=== PATIENT | female | born 1980 | race Caucasian/White ===

== ENCOUNTER 2016-11-13 19:31 | Emergency (ER) | payer OTHER ==
--- NOTE | 2016-11-13 20:04 | ERNOTE ---
Chest Pain/Cardiac HPI Chief Complaint: Chest Pain Time Seen by Provider: 11/13/16 19:57 Source: patient Exam Limitations: no limitations Immunizations: IMMUNIZATION HX Immunizations Up to Date Yes History of Influenza Vaccine No Hx Pneumococcal Vaccination No Allergies/Adverse Reactions: Allergies amoxicillin trihydrate [From Amoxil] Allergy (Verified 11/13/16 19:34) oxycodone [Oxycodone] Adverse Reaction (Intermediate, Verified 11/13/16 19:34) v and d Penicillins Adverse Reaction (Intermediate, Verified 11/13/16 19:34) v and d Sulfa (Sulfonamide Antibiotics) [Sulfa(Sulfonamide Antibiotics)] Adverse Reaction (Intermediate, Verified 11/13/16 19:34) v and d mold Allergy (Uncoded 11/13/16 19:34) Home Medications: HOME MEDICATIONS Albuterol Sulfate [Ventolin Hfa] 2 puff IH Q4H PRN 08/25/14 [Last Taken Unknown] hydrOXYzine PAMOATE [Vistaril] 50 mg PO Q4H PRN 08/25/14 [Last Taken Unknown] Acetaminophen [Tylenol] 1,000 mg PO BID PRN 11/13/16 [Last Taken Unknown] Aspirin [Aspirin Chewable] 81 mg PO DAILY 11/13/16 [Last Taken Unknown] Atorvastatin Calcium 10 mg PO HS 11/13/16 [Last Taken Unknown] Calcium Carbonate [Tums] 500 mg PO TID PRN 11/13/16 [Last Taken Unknown] EPINEPHrine [Epipen] 0.3 mg IJ PRN PRN 11/13/16 [Last Taken Unknown] Escitalopram Oxalate [Lexapro] 20 mg PO HS 11/13/16 [Last Taken Unknown] Famotidine 20 mg PO BID 11/13/16 [Last Taken Unknown] Nabumetone 750 mg PO BID #20 tablet 11/13/16 [Last Taken Unknown] Nitroglycerin [Nitrostat] 0.3 mg SL Q5MIN PRN 11/13/16 [Last Taken Unknown] Pantoprazole Sodium 40 mg PO DAILY 11/13/16 [Last Taken Unknown] tiZANidine HCL [Tizanidine HCl] 4 mg PO Q8H PRN 11/13/16 [Last Taken Unknown] Narrative: Pt states she had onset of chest pain yesterday evening at rest and was given nitro which resolved her symptoms. Today she had another episode of chest pain and has had 2 nitro and librium without improvement Timing: intermittent Severity/Quality: moderate Location: left chest Chest Pain Radiation: arms - left arm Activities at Onset: none Nitro Today/Relief: 0.4 mg x 2, provided at home - Longterm Review of Systems - Review of Systems Constitutional: Absent: recent illness EYE: Absent: vision changes ENT: Present: no symptoms reported Respiratory: Present: shortness of breath Cardiology: Present: See HPI Gastrointestinal/Abdominal: Present: no symptoms reported Genitourinary: Absent: pain, dysuria Musculoskeletal: Present: muscle stiffness - of left arm. Skin: Present: no symptoms reported Neurological: Present: tingling - left arm Endocrine: Present: no symptoms reported Hematologic/Lymphatic: Present: no symptoms reported Psych: Present: no symptoms reported - Patient's Past Medical History Patient History - Medical: Anxiety, Depression Patient History - Cardiac/Respiratory: TIA, Other Patient History - Cancer: No Hx of Cancer Patient History - Surgical Procedures: Appendectomy Patient History - Other: None LMP (females 10-50): last week LMP (Calendar): 11/11/16 - Social History Living Situations: other Psych History: Hx of Anxiety, Hx of Depression Smoking Status: Former smoker Have you smoked in the past 12 months: Yes Do you dip or chew tobacco: No Patient requests Smoking Cessation Consult: No Initiate information on Smoking Cessation: No - Immunizations Immunizations Up to Date: Yes Hx Pneumococcal Vaccination: No History of Influenza Vaccine: No Physical Exam - Physical Exam General Appearance: Present: wd/wn, alert, no apparent distress Head Exam: Present: normal inspection, no evidence of injury Eye Exam: Normal inspection: bilateral, PERRL: bilateral, EOMI: bilateral Ears, Nose, Throat: Present: normal ENT inspection Neck: Present: normal inspection, nontender Respiratory: Present: no respiratory distress, normal breath sounds, lungs clear Cardiovascular/Chest: Present: regular rate, rhythm, no murmur, normal peripheral pulses Gastrointestinal/Abdominal: Present: normal bowel sounds, nontender, nondistended, soft Back Exam: Present: normal inspection, normal range of motion, no vertebral tenderness Extremity Exam: Present: decreased range of motion - left arm due to apparent muscle contracture Neurological Exam: Present: alert, oriented, normal mood/affect, other - muscle contracture of right arm Skin Exam: Present: normal color, warm/dry Lymphatic Exam: Present: no adenopathy ED Progress - Results and Orders Patient's Lab Results:: I have reviewed the patient's lab results. Results and Orders: Laboratory Tests 11/13/16 11/13/16 22:18 22:18 WBC 8.4 Hgb 11.0 L Hct 33.5 L Plt Count 250 Sodium 142 Potassium 4.1 Chloride 105 Carbon Dioxide 26.9 BUN 14 Creatinine 0.89 Random Glucose 103 Calcium 8.8 Total Bilirubin 0.2 AST 13 ALT 23 Alkaline Phosphatase 81 Troponin I Less than 0.017 Total Protein 7.3 Albumin 3.7 - Vital Signs Patient's Vital Signs:: I have reviewed the patient's vital signs. Vital Signs: Vital Signs 11/13/16 19:32 Temperature 36.8 C Pulse Rate 82 Respiratory 16 Rate Blood Pressure 123/79 O2 Sat by Pulse 99 Oximetry - EKG EKG: NSR, no ST T wave changes EKG read: Interp. by me - X-Ray X-Ray #1 X-Ray: chest Interpretation: Interp. by me X-ray Comments: no acute changes - Progress/Reassessment Chief Complaint: Chest Pain Progress Note-Subjective: 11/13/16 23:06 Pt feeling better, testing is negative. I reviewed her previous cardiology consults from [facility] in [place], [place]. Dr. Muller felt that there is a musculoskeletal component to her chest pain and suggested in September of this year that she take NSAIDS for that. I spoke with the patient and told her that I would prescribe an NSAID for her to take regularly for a while. Pt expressed agreement with that plan Departure - Departure Clinical Impression: Chest pain Qualifiers: Chest pain type: intercostal pain Qualified Code(s): R07.82 - Intercostal pain Disposition: Longterm Condition: Good Instructions: Nonspecific Chest Pain, [id number] Prescriptions: Nabumetone 750 mg PO BID #20 tablet
[2016-11-13] MEDS ORDERED: KETOROLAC TROMETHAMINE 30 MG/ML VIAL IV ONE (21:11)
[2016-11-13] MEDS ORDERED: KETOROLAC TROMETHAMINE 30 MG/ML VIAL ONE (21:23)
[2016-11-13 22:18] LABS: Hematocrit 33.5 % (37.0-47.0); Mean Cell Volume 83.1 fl (78-100); Mean Corpuscular Hemoglobin 27.3 pg (27-31); Mean Corpuscular Hgb Conc 32.8 g/dl (32-36); Mean Platelet Volume 9.5 fl (6.0-9.5); Neutrophil % 47.8 % (42-75.0); Platelet Count 250 K/mm3 (150-450); Red Blood Count 4.03 M/mm3 (4.2-5.4); Red Cell Distribution Width 16.6 % (11.5-14.0); White Blood Count 8.4 K/mm3 (4.0-10.5)
[2016-11-13 22:38] LABS: ALT 23 U/L (19-67); AST 13 U/L (0-48); Albumin * 3.7 gm/dl (3.4-5.0); Alkaline Phosphatase * 81 U/L (50-170); Anion Gap 14.2 mmol/L (6.8-13.8); BUN/Creatinine Ratio 15.7 (9.0-21.6); Bilirubin, Total 0.2 mg/dL (0.0-1.1); Blood Urea Nitrogen 14 mg/dL (3-23); Ca. Corrected For Albumin 8.7 mg/dL (8.4-10.2); Calcium * 8.8 mg/dL (7.9-10.9); Carbon Dioxide 26.9 mmol/L (24-32.6); Chloride 105 mmol/L (97-106); Glucose * 103 mg/dL (70-110); Potassium 4.1 mmol/L (3.4-4.6); Sodium 142 mmol/L (132-142); Total Protein 7.3 gm/dL (6.2-8.2); Troponin I Less than 0.017 ng/ml (0.00-0.10)
[2016-11-13 23:05] VITALS: BP 120/60
== END 2016-11-13 23:09 ==
LOC: ER 19:31
DX: R07.82 Intercostal pain (principal); Z87.891 Personal history of nicotine dependence; Z86.73 Personal history of transient ischemic attack (TIA), and cerebral infarction without residual deficits; F41.9 Anxiety disorder, unspecified; F32.9 Major depressive disorder, single episode, unspecified